=== PATIENT | male | born 1980 | race Caucasian/White ===

== ENCOUNTER 2023-01-28 13:37 | Emergency (ER) | payer SELFPAY ==
[2023-01-28] VITALS (17 sets, daily range): BP systolic 97–147; BP diastolic 53–91
[~2023-01-28] VITALS: Ht 185.4 cm; Wt 82.0 kg
[2023-01-28 15:53] LABS: BASO% 0.3 % (0-3); EOS% 0.6 % (0-8); HEMATOCRIT 49.4 % (39.0-50.0); IMMATURE GRANULOCYTES 0.1 % (0.0-5.0); LYMPH% 22.6 % (15-41); MEAN CELL VOLUME 90.8 fL CALC (80.0-100.0); MEAN CORPUSCULAR HGB 29.4 pG CALC (26.0-32.0); MEAN CORPUSCULAR HGB CONC 32.4 g/dL CAL (32.0-36.0); MONO% 4.6 % (2-13); NEUT# 5.16 thou/uL (1.82-7.42); NEUT% 71.8 % (42-76); RED BLOOD COUNT 5.44 mill/uL (4.70-6.10); RED CELL DISTRI WIDTH 12.9 % (11.5-15.5)
[2023-01-28] MEDS ORDERED: PROTONIX40 M4 PO (17:57)
== END 2023-01-28 18:10 | disposition home or self-care (01) | DRG 392 ==
LOC: ED 13:37
PROVIDERS: Family Medicine
DX: K52.9 Noninfective gastroenteritis and colitis, unspecified (principal)
CPT/HCPCS: S0164